=== PATIENT | male | born 1980 | race Caucasian/White ===

== ENCOUNTER → 2023-07-11 10:38 | Outpatient (REF) | payer SELFPAY ==
--- NOTE | 2023-07-11 15:58 | STRESSREP ---
Stress Test Report Exercise stress test. 43-year-old man for preemployment physical Stress protocol: Resting EKG demonstrates sinus bradycardia with a rate of 55 bpm resting blood pressure is 120/70 mmHg. The patient exercised according to the regular Morgan protocol for a total duration of 12 minutes completing stage IV of the Morgan protocol and attaining a maximum heart rate of 171 bpm which was 96% of maximum predicted heart rate; the maximum workload was 13.7 metabolic equivalents. At rest there were no ST or T wave changes noted to suggest ischemia and at peak exercise upsloping ST changes only were noted which did not meet the criteria for ischemia. No clinical angina was noted the test was terminated due to the target heart rate being achieved/fatigue. The peak blood pressure was 160/88 mmHg. Rate-pressure product was 27,300. Conclusion: Stress test with no EKG or clinical criteria for ischemia at a high workload Excellent functional capacity
== END ==
LOC: CVS 10:38
PROVIDERS: Visit Provider Emergency Medicine
DX: Z02.1 Encounter for pre-employment examination (principal)